=== PATIENT | male | born 1950 | race Caucasian/White ===

== ENCOUNTER 2016-10-27 22:06 | Emergency (ER) ==
[2016-10-27 22:14] VITALS: BP 163/113; TEMP 96.2; BMI 20.9
[2016-10-27] MEDS ORDERED: MORPHINE 4 MG/ML SYRINGE IM STA (23:10)
[2016-10-27] MEDS ORDERED: ZOFRAN 4 MG/2 ML IM STA (23:10)
--- NOTE | 2016-10-27 23:15 | ED.PDOC ---
General ED Provider: Dr. HERIBERTO CARNES Chief Complaint: Extremity Pain/Injury Stated Complaint: Patient complains of right elbow and proximal forearm pain that started after he fell today. Time Seen by Physician: 23:13 Mode of Arrival: Walk-In Information Source: Patient Exam Limitations: No limitations Primary Care Provider: JUNITO NEGRO Nursing and Triage Documentation Reviewed and Agree: Yes Musculoskeletal Complaint Exam - Elbow Pain Complaint/Exam Mechanism of Injury: Reports: Trauma Onset/Duration: 1 day Symptoms Are: Still present Onset of Pain: Reports: Immediate, Post accident Initial Severity: Moderate Current Severity: Severe Location: Reports: Diffuse Character: Reports: Aching, Throbbing Alleviating: Reports: None Aggravating: Reports: Movement, Twisting, Pulling Associated Signs and Symptoms: Reports: Swelling. Denies: Redness, Bruising, Fever, Weakness, Numbness, Tingling Related History: Denies: Similar episode, Occupational injury Related Surgical History: Reports: None Elbow Findings: Present: Swelling Tenderness: Present: Medial Condyle, Lateral Condyle, Radial Head Limited Range of Motion: Present: Pronation Differential Diagnoses: Sprain, Strain Review of Systems - Review Of Systems Constitutional: Reports: No symptoms Eyes: Reports: No symptoms Ears, Nose, Mouth, Throat: Reports: No symptoms Respiratory: Reports: No symptoms Cardiac: Reports: No symptoms GI: Reports: No symptoms : Reports: No symptoms Musculoskeletal: Reports: Joint pain, Joint swelling, Muscle pain Skin: Reports: No symptoms Neurological: Reports: Anxiety Endocrine: Reports: No symptoms Hematologic/Lymphatic: Reports: No symptoms All Other Systems: Reviewed and Negative Past Medical History - Past Medical History Endocrine: Reports: None Cardiovascular: Reports: Hypertension Respiratory: Reports: COPD Hematological: Reports: None Gastrointestinal: Reports: None Genitourinary: Reports: None Neuro/Psych: Reports: CVA, Anxiety, Depression Musculoskeletal: Reports: None Cancer: Reports: Other (Throat Cancer ) - Surgical History General Surgical History: Reports: Unknown - Family History Family History: Reports: Unknown - Social History Smoking Status: Current every day smoker Hx Substance Use: No Alcohol Screening: Occasionally Physical Exam - Physical Exam Appearance: Thin Ill-appearing: Mild Pain Distress: Severe Neck: Supple Respiratory: Airway patent, Breath sounds clear, Breath sounds equal, Respirations nonlabored Cardiovascular: RRR, Pulses normal, No rub, No murmur GI/: Soft, Nontender, No masses, Bowel sounds normal, No Organomegaly Musculoskeletal: Normal strength, No calf tenderness, Limited ROM, Edema Skin: Warm, Dry Psychiatric: Anxious Interpretation - Radiology Interpretation Radiology Interpretation By: ED Physician Radiology Results: Negative (bone spur.) Exam Interpreted: Other (Elbow and forarm pain ) Critical Care Note - Critical Care Note Total Time (mins): 0 Course - Course Orders, Labs, Meds: Orders Category Date Time Status Morphine Sulfate [Morphine 4 mg/ml Syringe] MEDS 10/27/16 23:10 Discontinued 4 mg IM ONCE STA Ondansetron HCl/Pf [Zofran 4 mg/2 ml] MEDS 10/27/16 23:10 Discontinued 4 mg IM ONCE STA ELBOW, RIGHT MIN 3 VIEWS Stat RADS 10/27/16 23:10 Taken FOREARM, RIGHT 2 VIEWS Stat RADS 10/27/16 23:10 Taken Medications Discontinued Medications Generic Name Dose Route Start Last Admin Trade Name Freq PRN Reason Stop Dose Admin Morphine Sulfate 4 mg 10/27/16 23:10 10/27/16 23:42 Morphine 4 Mg/Ml Syringe IM 10/27/16 23:11 4 mg ONCE STA Administration Ondansetron HCl 4 mg 10/27/16 23:10 10/27/16 23:41 Zofran 4 Mg/2 Ml IM 10/27/16 23:11 4 mg ONCE STA Administration Vital Signs: Temp Pulse Resp BP Pulse Ox 10/27/16 22:07 96.2 F L 69 16 163/113 H 98 Departure - Departure Time of Disposition: 23:48 Disposition: HOME SELF-CARE Discharge Problem: Elbow injury Qualifiers: Encounter type: initial encounter Laterality: right Qualifier Code: (S59.901A) Unspecified injury of right elbow, initial encounter Instructions: Elbow Sprain (ED) Condition: Fair Pt referred to PMD for follow-up: Yes Additional Instructions: Rest forearm Follow up wth PCP in 3 days Take medications as prescribed. Prescriptions: Hydrocodone/Acetaminophen [[place] 5-325 Tablet] 1 tab PO Q6HR PRN #12 tablet PRN Reason: PAIN Meloxicam [Mobic] 7.5 mg PO DAILYWM #14 tablet Allergies/Adverse Reactions: Allergies No Known Allergies Allergy (Unverified 10/27/16 22:10) Home Medications: Ambulatory Orders Alprazolam [Xanax] 0.25 mg PO BEDTIME 01/17/14 Aspirin [Aspirin EC] 325 mg PO DAILYWM 01/17/14 Clopidogrel Bisulfate [Plavix] 75 mg PO DAILY 01/17/14 Lisinopril [Zestril] 20 mg PO DAILY 01/17/14 Hydrocodone/Acetaminophen [[place] 5-325 Tablet] 1 tab PO Q6HR PRN #12 tablet 11/10 Levothyroxine Sodium [Synthroid] 75 mcg PO QDAC 10/27/16 Meloxicam [Mobic] 7.5 mg PO DAILYWM #14 tablet 10/27/16 Pantoprazole Sodium [Protonix] 20 mg PO DAILY 10/27/16 Disposition Discussed With: Patient, Family
--- NOTE | 2016-10-27 23:52 | DI ---
Exam: The right elbow three views History: Fall with elbow pain Findings / impression: No acute bony or articular abnormalities are seen. There is spurring on the olecranon. Marginal osteophytosis of the trochlea.
--- NOTE | 2016-10-27 23:53 | DI ---
Exam: Rightforearm two views HISTORY: Injury and pain Findings / impression: No bony abnormality is seen. No significant surrounding soft tissue abnorma lity. Negative exam.
== END 2016-10-28 00:16 | disposition home or self-care (01) ==
LOC: ED 22:06
DX: S59.901A Unspecified injury of right elbow, initial encounter (principal); M25.521 Pain in right elbow; M79.631 Pain in right forearm; W19.XXXA Unspecified fall, initial encounter; F17.210 Nicotine dependence, cigarettes, uncomplicated
CPT/HCPCS: 96372; 99283

== ENCOUNTER 2016-12-11 11:19 | Emergency (ER) ==
[2016-12-11 11:27] VITALS: BP 108/88; TEMP 98.8; BMI 21.3
[2016-12-11] MEDS ORDERED: SODIUM CHLORIDE 1,000 ML IV STA (11:40)
[2016-12-11 11:49] LABS: BASOPHILS # (AUTO) 0.1 K/uL (0-0.2); BASOPHILS % (AUTO) 0.7 % (0.0-3.0); EOSINOPHILS # (AUTO) 0.3 K/ul (0.0-0.7); EOSINOPHILS % (AUTO) 3.7 % (0.0-7.0); HEMATOCRIT 45.5 % (42.0-52.0); HEMOGLOBIN 15.3 g/dl (14.0-18.0); IMMATURE GRANULOCYTE % (AUTO) 0.4 % (0.0-5.0); LYMPHOCYTES # (AUTO) 1.2 K/uL (0.60-3.4); LYMPHOCYTES % (AUTO) 16.3 (10.0-50.0); MEAN CORPUSCULAR HGB CONC 33.6 (31.8-35.4); MEAN CORPUSCULAR VOLUME 92.3 fl (80.0-94.0); MONOCYTES # (AUTO) 0.6 K/uL (0.4-2.0); MONOCYTES % (AUTO) 8.2 (0-10); NEUTROPHILS # (AUTO) 5.2 K/ul (2.0-6.9); NEUTROPHILS % (AUTO) 70.7; PLATELET COUNT 334 10^3/uL (140-440); RED BLOOD COUNT 4.93 10^6/ul (4.70-6.10)
--- NOTE | 2016-12-11 12:05 | ED.PDOC ---
General ED Provider: Dr. KULDEEP RIOS JR Chief Complaint: Non-specific Complaint Stated Complaint: Woke at 0945 with visual difficulties. States he could see where he was going, but everything was blurry. Family states was unsteady.. Vision cleared approc 30-40 min ago.[ End ]98.8 143 20 96% 108/88 Time Seen by Physician: 12:05 Mode of Arrival: Wheelchair Information Source: Patient Exam Limitations: No limitations Primary Care Provider: JUNITO NEGRO Nursing and Triage Documentation Reviewed and Agree: No Review of Systems - Review Of Systems Constitutional: Reports: Malaise Eyes: Reports: No symptoms Ears, Nose, Mouth, Throat: Reports: No symptoms Respiratory: Reports: No symptoms Cardiac: Reports: Lightheadedness GI: Reports: No symptoms : Reports: No symptoms Musculoskeletal: Reports: No symptoms Skin: Reports: No symptoms Neurological: Reports: No symptoms Endocrine: Reports: No symptoms Hematologic/Lymphatic: Reports: No symptoms All Other Systems: Other Past Medical History - Past Medical History Endocrine: Reports: None Cardiovascular: Reports: Hypertension Respiratory: Reports: COPD Hematological: Reports: None Gastrointestinal: Reports: None Genitourinary: Reports: None Neuro/Psych: Reports: TIA, CVA, Anxiety, Depression Musculoskeletal: Reports: None Cancer: Reports: Other (Throat Cancer ) - Surgical History General Surgical History: Reports: Unknown - Family History Family History: Reports: Unknown - Social History Smoking Status: Current every day smoker, Heavy tobacco smoker Hx Substance Use: No Alcohol Screening: Occasionally Physical Exam - Physical Exam Appearance: Well-appearing Pain Distress: Mild Eyes: CASSANDRA, EOMI, Conjunctiva clear ENT: Ears normal, Nose normal, Oropharynx normal Neck: Supple Respiratory: Airway patent, Breath sounds clear, Breath sounds equal, Respirations nonlabored Cardiovascular: RRR, Pulses normal, No rub, No murmur GI/: Soft, Nontender, No masses, Bowel sounds normal, No Organomegaly Musculoskeletal: Normal strength, ROM intact, No edema, No calf tenderness Skin: Warm, Dry, Normal color Neurological: Sensation intact, Motor intact, Reflexes intact, Cranial nerves intact, Alert, Oriented Psychiatric: Affect appropriate, Mood appropriate Interpretation - EKG Interpretation Time of EKG #1: 11:45 Rate: Tachy Rhythm: Other (AFIB RVR RBBB) Physician Notification - Case Discussed Physician Notified: SRUTHI Time of Notification: 14:14 (AFIB CARDIZEM) Critical Care Note - Critical Care Note Total Time (mins): 10 Course - Course Hematology/Chemistry: 12/11/16 11:40 12/11/16 11:40 Orders, Labs, Meds: Lab Review 12/11/16 11:40 WBC 7.30 RBC 4.93 Hgb 15.3 Hct 45.5 MCV 92.3 MCH 31.0 MCHC 33.6 RDW Coeff of Dago 13.3 Plt Count 334 Immature Gran % (Auto) 0.4 Neut % (Auto) 70.7 Lymph % (Auto) 16.3 Branch % (Auto) 8.2 Eos % (Auto) 3.7 Baso % (Auto) 0.7 Immature Gran # (Auto) 0.0 Neut # 5.2 Lymph # 1.2 Branch # 0.6 Eos # 0.3 Baso # 0.1 Sodium 139 Potassium 4.6 Chloride 101 Carbon Dioxide 28 Anion Gap 14.6 BUN 18 Creatinine 1.04 Estimated GFR (MDRD) 72.00 BUN/Creatinine Ratio 17.30 Glucose 139 H Calcium 9.9 Total Bilirubin 0.44 AST 19 ALT 15 Alkaline Phosphatase 71 Total Protein 7.5 Albumin 4.0 Globulin 3.5 Albumin/Globulin Ratio 1.14 Orders Category Date Time Status EKG-(ED ONLY) Stat CARDIO 12/11/16 11:40 Completed EKG-(ED ONLY) Stat CARDIO 12/11/16 13:34 Completed CBC W/ AUTO DIFF Stat LAB 12/11/16 11:40 Completed COMPREHENSIVE METABOLIC PANEL Stat LAB 12/11/16 11:40 Completed Sodium Chloride 0.9% [Sodium Chloride] 1,000 ml MEDS 12/11/16 11:40 Discontinued IV BOLUS CHEST, 1V AP ONLY Stat RADS 12/11/16 11:[address] HEAD W/O CONTRAST Stat RADS 12/11/16 11:41 Completed Medications Discontinued Medications Generic Name Dose Route Start Last Admin Trade Name Freq PRN Reason Stop Dose Admin Sodium Chloride 1,000 mls @ 1,000 mls/hr 12/11/16 11:40 12/11/16 11:53 Sodium Chloride IV 12/11/16 12:39 1,000 mls/hr BOLUS STA Administration Vital Signs: Temp Pulse Resp BP Pulse Ox 12/11/16 11:21 98.8 F 143 H 20 108/88 96 Departure - Departure Time of Disposition: 14:11 Disposition: HOME SELF-CARE Discharge Problem: Atrial fib/flutter, transient Instructions: Atrial Fibrillation (ED) Condition: Good Pt referred to PMD for follow-up: Yes Additional Instructions: take cardizem daily follow up with PMD within two weeks call today for appointment Prescriptions: Diltiazem HCl [Cardizem Cd] 120 mg PO DAILY #30 cap.er.24h Allergies/Adverse Reactions: Allergies No Known Allergies Allergy (Verified 12/11/16 11:28) Home Medications: Ambulatory Orders Alprazolam [Xanax] 0.25 mg PO BEDTIME 01/17/14 Aspirin [Aspirin EC] 325 mg PO DAILYWM 01/17/14 Clopidogrel Bisulfate [Plavix] 75 mg PO DAILY 01/17/14 Lisinopril [Zestril] 20 mg PO DAILY 01/17/14 Hydrocodone/Acetaminophen [[place] 5-325 Tablet] 1 tab PO Q6HR PRN #12 tablet 11/10 Levothyroxine Sodium [Synthroid] 75 mcg PO QDAC 10/27/16 Pantoprazole Sodium [Protonix] 20 mg PO DAILY 10/27/16 Diltiazem HCl [Cardizem Cd] 120 mg PO DAILY #30 cap.er.24h 12/11/16 Meloxicam [Mobic] 7.5 mg PO DAILYWM PRN 12/11/16 Paroxetine HCl [Paxil] 20 mg PO DAILY 12/11/16
[2016-12-11 12:09] LABS: ALBUMIN/GLOBULIN RATIO 1.14; ANION GAP 14.6; BILIRUBIN,TOTAL 0.44 mg/dL (0.00-1.20); BUN/CREATININE RATIO 17.3; CALCIUM 9.9 mg/dL (8.2-10.2); CREATININE 1.04 mg/dL (0.60-1.10); POTASSIUM 4.6 mmol/L (3.5-5.1); TOTAL PROTEIN 7.5 g/dL (5.8-8.1)
--- NOTE | 2016-12-11 13:33 | CT ---
EXAM: CT head without contrast. HISTORY: Visualized. Previous transient ischemic attack. COMPARISON: None available. TECHNIQUE: Multiple axial images of the brain were obtained from the skull base through the vertex without intravenous contrast. FINDINGS: There is no intracranial hemorrhage or extraaxial collection. The wetzel-white differentia tion is maintained without evidence for acute large vascular territory infarction. Question old lef t cerebellar infarction on axial image 7. The cortical sulci and basal cisterns are well visualized . There is no hydrocephalus, mass effect, or midline shift. Moderate mucosal thickening in the eth moid sinuses noted. Small polyp or retention cyst noted in the left sphenoid sinus. Otherwise, the paranasal sinuses and mastoid air cells are clear. The calvarium is intact. IMPRESSION: No acute intracranial abnormality.
--- NOTE | 2016-12-11 13:33 | DI ---
EXAM: Single x-ray of the chest. Comparison: 10/12/2015. Reason for exam: No pneumothorax, pleural effusion, or focal consolidation. The cardiac silhouette is not enlarged. The imaged osseous structures are unremarkable without acute fracture. Degenerati ve changes are seen in the thoracic spine and aorta. Impression: No acute cardiopulmonary process.
== END 2016-12-11 14:37 | disposition home or self-care (01) ==
LOC: ED 11:19
DX: I48.91 Unspecified atrial fibrillation (principal); R42 Dizziness and giddiness; I10 Essential (primary) hypertension; Z79.899 Other long term (current) drug therapy; Z86.73 Personal history of transient ischemic attack (TIA), and cerebral infarction without residual deficits; F17.210 Nicotine dependence, cigarettes, uncomplicated
CPT/HCPCS: 36415; 80053; 85025; 93005; 93010; 96360; 99283

== ENCOUNTER 2017-10-30 08:02 | Outpatient (CLI) ==
--- NOTE | 2017-10-30 09:55 | CT ---
EXAM: CT chest with contrast HISTORY: Pulmonary nodule with history of cancer COMPARISON: Chest x-ray 12/11/2016 multiple prior chest x-rays with CT chest 01/16/2013. TECHNIQUE: Serial axial images of the chest were obtained after 75 ml of Omnipaque IV contrast was a dministered. These were obtained from the lung apices to the upper abdomen. FINDINGS: The thyroid is normal. Visualized vessels demonstrate scattered atherosclerotic disease. There is no dissection, aneurysm or stenosis. The heart is normal in size without pericardial effus ion. There is mild low attenuation in the subcarinal space unchanged from exam 2013. There is no di screte mediastinal lymphadenopathy. There is minimal debris in the right lower lobe bronchus. There is no pneumothorax or pleural effusion. There is a lobular pulmonary nodule in the anterior le ft upper lobe measuring 1.7 x 1.5 cm which is new when compared to 2013. There is a 0.3 cm ground-gla ss nodule in the left upper lobe on image 30. There is a 0.3 cm ground-glass nodule in the left uppe r lobe on image 36. There is mild bibasilar atelectasis. There is a 0.2 cm perifissural nodule on i mage 37 in the left lower lobe. There is a 0.3 cm ground-glass nodule in the central right upper lob e on image 28. The central airways are patent with layering debris in the right main and right lower lobe bronchus. Soft tissues in the upper abdomen demonstrate low attenuation lesion in the central right hepatic lo be measuring 0.8 cm in diameter which is unchanged. The remaining soft tissues are unremarkable. Os seous structures demonstrate degenerative disease. IMPRESSION: 1. Large lobular pulmonary nodule in the left anterior upper lobe measuring 1.7 x 1.5 cm. This is s uspicious for neoplasm and soft tissue sampling is recommended. 2. Scattered additional pulmonary nodules are present measuring no greater than 0.3 cm in diameter. Attention on follow-up is recommended. 3. Mild debris in the right lower lobe bronchus may represent retained secretions versus mild aspira tion. 4. Stable low attenuation lesion in the central right hepatic lobe.
== END 2017-10-30 08:03 | disposition home or self-care (01) ==
LOC: RAD 08:02
PROVIDERS: ATTEND Family Medicine
DX: R91.1 Solitary pulmonary nodule (principal)
CPT/HCPCS: 36415; 82565

== ENCOUNTER 2018-04-07 11:30 | Emergency (ER) | payer OTHER ==
[2018-04-07 11:37] VITALS: BP 84/51; TEMP 99.2; BMI 24.3
--- NOTE | 2018-04-07 12:52 | ED.PDOC ---
General ED Provider: Dr. SCOOTER VASQUEZ Chief Complaint: Abdominal Pain Stated Complaint: abdominal pain Time Seen by Physician: 11:40 Mode of Arrival: Walk-In Information Source: Patient Exam Limitations: No limitations Primary Care Provider: JUNITO NEGRO Nursing and Triage Documentation Reviewed and Agree: Yes Does patient meet sepsis criteria?: No If yes, has appropriate treatment been initiated?: No System Inflammatory Response Syndrome: Not Applicable Sepsis Protocol: For patient's 13 years and over: Temp is 96.8 and below OR 101 and greater Pulse >90 BPM Resp >20/minute Acutely Altered Mental Status Are patient's symptoms suggestive of a new infection, such as: -Pneumonia -Skin, Soft Tissue -Endocarditis -UTI -Bone, Joint Infection -Implantable Device -Acute Abdominal Infection -Wound Infection -Meningitis -Blood Stream Catheter Infection -Unknown GI Complaint Exam - Abdominal Pain Complaint/Exam Onset: Gradual Duration: 2 days Symptoms Are: Still present Timing: Intermittent Initial Severity: Mild Current Severity: Mild Location of Pain: RLQ, LLQ Radiates To: Denies: Chest, Back, Flank, LLQ, RLQ, Inguinal Character: Reports: Dull Aggravating: Reports: None Alleviating: Reports: None Associated Signs and Symptoms: Denies: Diaphoresis, Fever, Cough, Chest pain, Dizziness, Back pain, Constipation, Blood in stool, Dysuria, Urinary frequency, Decreased urine output, Decreased appetite, Discharge, Nausea, Vomiting, Diarrhea, Decreased activity AAA Risk Factors: Reports: None Cardiac Risk Factors: Reports: Hypertension, Elevated lipids Testicular Torsion Risk Factors: Reports: None Surgical Obstruction Risk Factors: Reports: None Related Surgical History: Reports: None Abdominal Findings: Present: None Differential Diagnoses: Appendicitis, Bowel Obstruction, Diverticulitis Review of Systems - Review Of Systems Constitutional: Reports: No symptoms Eyes: Reports: No symptoms Ears, Nose, Mouth, Throat: Reports: No symptoms Respiratory: Reports: No symptoms Cardiac: Reports: No symptoms GI: Reports: Abdominal pain : Reports: No symptoms Musculoskeletal: Reports: No symptoms Skin: Reports: No symptoms Neurological: Reports: No symptoms Endocrine: Reports: No symptoms Hematologic/Lymphatic: Reports: No symptoms All Other Systems: Reviewed and Negative Past Medical History - Past Medical History Previously Healthy: Yes Endocrine: Reports: None Cardiovascular: Reports: Hypertension Respiratory: Reports: COPD Hematological: Reports: None Gastrointestinal: Reports: None Genitourinary: Reports: None Neuro/Psych: Reports: TIA, CVA, Anxiety, Depression Musculoskeletal: Reports: None Cancer: Reports: Other (Throat Cancer ) - Surgical History General Surgical History: Reports: Unknown - Family History Family History: Reports: Unknown - Social History Smoking Status: Current some day smoker Hx Substance Use: No Alcohol Screening: None - Immunizations Tetanus Shot up to Date: Yes Physical Exam - Physical Exam Appearance: Well-appearing, No pain distress, Well-nourished Eyes: CASSANDRA, EOMI, Conjunctiva clear ENT: Ears normal, Nose normal, Oropharynx normal Respiratory: Airway patent, Breath sounds clear, Breath sounds equal, Respirations nonlabored Cardiovascular: RRR, Pulses normal, No rub, No murmur GI/: Soft, Nontender, No masses, Bowel sounds normal, No Organomegaly Musculoskeletal: Normal strength, ROM intact, No edema, No calf tenderness Skin: Warm, Dry, Normal color Neurological: Sensation intact, Motor intact, Reflexes intact, Cranial nerves intact, Alert, Oriented Psychiatric: Affect appropriate, Mood appropriate Physician Notification - Case Discussed Physician Notified: [email or web address] Time of Notification: 13:31 Admit To: Inpatient Critical Care Note - Critical Care Note Total Time (mins): 0 Course - Course Hematology/Chemistry: 04/07/18 12:15 04/07/18 12:15 Orders, Labs, Meds: Lab Review 04/07/18 04/07/18 04/07/18 12:15 12:15 12:25 WBC 11.46 H RBC 4.06 L Hgb 12.1 L Hct 37.1 L MCV 91.4 MCH 29.8 MCHC 32.6 RDW Coeff of Dago 13.6 Plt Count 301 Immature Gran % (Auto) 0.5 Neut % (Auto) 80.5 Lymph % (Auto) 6.2 L Upson % (Auto) 7.9 Eos % (Auto) 4.5 Baso % (Auto) 0.4 Immature Gran # (Auto) 0.1 Neut # (Auto) 9.2 H Lymph # (Auto) 0.7 Upson # (Auto) 0.9 Eos # (Auto) 0.5 Baso # (Auto) 0.1 Sodium 139 Potassium 4.1 Chloride 103 Carbon Dioxide 25 Anion Gap 15.1 BUN 13 Creatinine 0.95 Estimated GFR (MDRD) 79.00 BUN/Creatinine Ratio 13.68 Glucose 107 Lactic Acid Calcium 10.0 Total Bilirubin 0.6 AST 15 ALT 14 Alkaline Phosphatase 84 Total Protein 7.7 Albumin 3.2 L Globulin 4.5 Albumin/Globulin Ratio 0.71 Amylase 26 Lipase 5 L Urine Color Brooke Urine Clarity Clear Urine pH 7.5 Ur Specific Raymond 1.015 Urine Protein 2+ Urine Glucose (UA) Negative Urine Ketones Trace Urine Blood Negative Urine Nitrite Negative Urine Bilirubin 1+ Urine Urobilinogen 2.0 Ur Leukocyte Esterase Negative Urine Microscopic WBC 2-5 Ur Squamous Epith Cells Not present Urine Bacteria Trace 04/07/18 13:00 WBC RBC Hgb Hct MCV MCH MCHC RDW Coeff of Dago Plt Count Immature Gran % (Auto) Neut % (Auto) Lymph % (Auto) Upson % (Auto) Eos % (Auto) Baso % (Auto) Immature Gran # (Auto) Neut # (Auto) Lymph # (Auto) Upson # (Auto) Eos # (Auto) Baso # (Auto) Sodium Potassium Chloride Carbon Dioxide Anion Gap BUN Creatinine Estimated GFR (MDRD) BUN/Creatinine Ratio Glucose Lactic Acid 7.9 Calcium Total Bilirubin AST ALT Alkaline Phosphatase Total Protein Albumin Globulin Albumin/Globulin Ratio Amylase Lipase Urine Color Urine Clarity Urine pH Ur Specific Raymond Urine Protein Urine Glucose (UA) Urine Ketones Urine Blood Urine Nitrite Urine Bilirubin Urine Urobilinogen Ur Leukocyte Esterase Urine Microscopic WBC Ur Squamous Epith Cells Urine Bacteria Orders Category Date Time Status AMYLASE Stat LAB 04/07/18 12:15 Completed BLOOD CULTURE Stat LAB 04/07/18 13:18 Ordered CBC W/ AUTO DIFF Stat LAB 04/07/18 12:15 Completed COMPREHENSIVE METABOLIC PANEL Stat LAB 04/07/18 12:15 Completed LACTIC ACID Stat LAB 04/07/18 13:00 Completed LIPASE Stat LAB 04/07/18 12:15 Completed PROCALCITONIN Stat LAB 04/07/18 Ordered URINALYSIS C & S IF INDICATED Stat LAB 04/07/18 12:[address] ABDOMEN/PELVIS WO CONTRAST Stat RADS 04/07/18 12:01 Completed Vital Signs: Temp Pulse Resp BP Pulse Ox 04/07/18 11:33 99.2 F 83 16 84/51 L 93 L Departure - Departure Time of Disposition: 13:31 Disposition: ADMITTED INPATIENT Discharge Problem: Abdominal pain, Diverticulitis Instructions: Abdominal Pain (ED) Condition: Good Pt referred to PMD for follow-up: Yes IPMP verified?: No Additional Instructions: Please call your Family Physician as soon as possible to schedule a follow-up appointment. Allergies/Adverse Reactions: Allergies No Known Allergies Allergy (Verified 12/11/16 11:28) Home Medications: Ambulatory Orders Alprazolam [Xanax] 0.25 mg PO BEDTIME 01/17/14 Aspirin [Aspirin EC] 325 mg PO DAILYWM 01/17/14 Clopidogrel Bisulfate [Plavix] 75 mg PO DAILY 01/17/14 Lisinopril [Zestril] 20 mg PO DAILY 01/17/14 Hydrocodone/Acetaminophen [[place] 5-325 Tablet] 1 tab PO Q6HR PRN #12 tablet 11/10 Levothyroxine Sodium [Synthroid] 75 mcg PO QDAC 10/27/16 Pantoprazole Sodium [Protonix] 20 mg PO DAILY 10/27/16 Diltiazem HCl [Cardizem Cd] 120 mg PO DAILY #30 cap.er.24h 12/11/16 Meloxicam [Mobic] 7.5 mg PO DAILYWM PRN 12/11/16 Paroxetine HCl [Paxil] 20 mg PO DAILY 12/11/16 Disposition Discussed With: Patient, Family
--- NOTE | 2018-04-07 13:02 | CT ---
EXAM: CT of the abdomen pelvis without contrast History: Abdominal pain, low grade fever, pain with urination. Technique: Multiplanar CT images through the abdomen pelvis were obtained without the administration of IV contrast Findings: Subsegmental atelectasis is seen within the lower lungs. No acute osseous abnormalities. All no discrete gallstones identified by CT. No focal liver or splenic lesions. Atherosclerotic vas cular calcifications. No peripancreatic inflammation. Adrenal glands are unremarkable. 1 mm right renal calculus. No left renal calculi. No hydronephrosis. No ureteral calculi. Fat-containing blake ateral inguinal hernias. Enlarged prostate abutting the base. The bladder. There is a soft tissue density seen at the bladder base. Colonic diverticulosis. There is short segment wall thickening of the sigmoid colon with adjacent inflammation and tethering. Evaluation for abscess is limited due t o the lack of contrast administration but no obvious drainable fluid collections are identified. No free air. Impression: 1. Short segment wall thickening of the sigmoid colon with adjacent inflammation. Differential diag nosis includes diverticulitis or malignancy. Further evaluation is recommended. 2. Soft tissue density at the base of bladder probably related to volume averaging from the enlarged prostate. Bladder wall mass is not excluded. Further evaluation can be obtained with CT urogram or direct visualization. 3. Punctate nonobstructing right renal calculus.
[2018-04-07] MEDS ORDERED: ROCEPHIN IM STA (13:39)
[2018-04-07] MEDS ORDERED: FLAGYL PO STA (13:39)
[2018-04-07] MEDS ORDERED: LIDOCAINE HCL 1% SDV IM STA (13:39)
== END 2018-04-07 13:59 | disposition left against medical advice (07) ==
LOC: ED 11:30
DX: K57.92 Diverticulitis of intestine, part unspecified, without perforation or abscess without bleeding (principal); R10.9 Unspecified abdominal pain; I10 Essential (primary) hypertension; E78.5 Hyperlipidemia, unspecified; F17.210 Nicotine dependence, cigarettes, uncomplicated; Z79.899 Other long term (current) drug therapy; Z86.73 Personal history of transient ischemic attack (TIA), and cerebral infarction without residual deficits
CPT/HCPCS: 36415; 80053; 81001; 82150; 83605; 83690; 84145; 85025; 87040; 96372; 99283

== ENCOUNTER 2018-07-16 12:12 | Outpatient (CLI) | payer OTHER ==
--- NOTE | 2018-07-16 15:08 | DI ---
EXAM: Three views of the lumbar spine. History: Lower back pain. Findings: Atherosclerotic vascular calcifications. No acute fracture or subluxation of the lumbar s pine. Mild to moderate multilevel disc space narrowing with endplate sclerosis and several prominent anterior osteophytes. Impression: 1. No acute osseous abnormality of the lumbar spine. 2. Mild to moderate degenerative disc disease. 3. Atherosclerotic vascular disease
--- NOTE | 2018-07-16 15:10 | DI ---
EXAM: Single view of the pelvis. History: Pelvic pain. Findings: No acute fracture or dislocation. Mild to moderate narrowing of bilateral hip joints with marginal sclerosis and small osteophytes. Impression: 1. No acute osseous abnormality. 2. 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
== END 2018-07-16 12:13 | disposition home or self-care (01) ==
LOC: RAD 12:12
PROVIDERS: ATTEND Family Medicine
DX: M54.5 Low back pain (principal); R10.2 Pelvic and perineal pain

== ENCOUNTER 2018-12-18 12:22 | Emergency (ER) | payer OTHER ==
[2018-12-18 12:27] VITALS: BP 133/91; TEMP 99.8; BMI 23.5
--- NOTE | 2018-12-18 14:22 | CT ---
EXAM: CT THORAX HISTORY: Cough, history of lung cancer. TECHNIQUE: CT thorax without intravenous contrast. Multiplanar images presented. COMPARISON: 10/30/2017 FINDINGS: Normal heart size. There is moderate atherosclerotic disease. Limited evaluation of the mediastinum and hilar structures without the administration of intravenous contrast agent. A few scattered medi astinal lymph nodes appear grossly stable. The the aforementioned left upper lobe nodule is less noticeable. There has been development of nume len nodular opacities throughout, especially the lower lobes with some measuring up to about 15 mm. Trace bilateral pleural effusions. Mild basilar consolidations are present. There is no pneumothor ax. The bones reveal bridging osteophytic spurs of the bones. IMPRESSION: 1. Aforementioned left upper lobe nodule is currently poorly seen/smaller. 2. Interval development of numerous nodular densities in the lungs especially lower lobes which may be infectious, less likely neoplastic although not excluded. 3. Trace pleural effusions. 4. Atherosclerosis.
[2018-12-18] MEDS ORDERED: DECADRON 4 MG/ML SDV IM STA (14:31)
--- NOTE | 2018-12-18 14:36 | ED.PDOC ---
General ED Provider: Dr. SCOOTER VASQUEZ Chief Complaint: Respiratory Complaint Stated Complaint: cough, congestion history of lung cancer still smokes some not short of breath denied chest pain Time Seen by Physician: 12:28 (nursing present ) Mode of Arrival: Walk-In Information Source: Patient Exam Limitations: No limitations Primary Care Provider: JUNITO NEGRO Nursing and Triage Documentation Reviewed and Agree: Yes Does patient meet sepsis criteria?: No System Inflammatory Response Syndrome: Not Applicable Sepsis Protocol: For patient's 13 years and over: Temp is 96.8 and below OR 101 and greater Pulse >90 BPM Resp >20/minute Acutely Altered Mental Status Are patient's symptoms suggestive of a new infection, such as: -Pneumonia -Skin, Soft Tissue -Endocarditis -UTI -Bone, Joint Infection -Implantable Device -Acute Abdominal Infection -Wound Infection -Meningitis -Blood Stream Catheter Infection -Unknown Respiratory Complaint Exam - Respiratory Complaint/Exam Onset/Duration: 2 days Symptoms Are: Resolved Timing: Intermittent Initial Severity: Mild Current Severity: Mild Location: Nose, Throat, Chest Character: Reports: Non-productive cough, Dry cough Aggravating: Reports: None Alleviating: Reports: Upright position, Spontaneous resolution Associated Signs and Symptoms: Reports: URI, Nasal congestion. Denies: Rapid breathing, Dyspnea, Fever, Chills, Chest pain, Pleuritic chest pain, Wheezing, Hemoptysis, Dizziness, Calf pain, Calf swelling, Edema, Hoarseness, Sinus discomfort, Vomiting, Sore throat, Weight loss, Decreased oral intake, Increased thirst, Increased appetite, Increased urination Related History: Reports: Similar episode History of Healthcare-Acquired Pneumonia: No Related Surgical History: Reports: None Pulmonary Embolism Risk Factors: Smoking Pseudomonas Risk Factors: Reports: Chronic Lung Disease Tuberculosis Risk Factors: Reports: None Status Asthmaticus Risk Factors: Reports: None Home Oxygen Use: No Recent Stress Test: No Recent Echo/LV Function: No Current Antibiotic Use: No Current Asthma Medication Use: No Respiratory Distress: None Inadequate Respiratory Effort: No Dysphagia Present: No Stridor Present: No JVD Present: No Accessory Muscle Use: No Retractions: Not Present Diminished Breath Sounds: No Sinus Tenderness: None Grunting Respirations: No Kussmaul Respirations: No Differential Diagnoses: CHF, COPD Exacerbation, Pneumonia, Lower Resp. Infection Review of Systems - Review Of Systems Constitutional: Reports: Loss of appetite Eyes: Reports: No symptoms Ears, Nose, Mouth, Throat: Reports: No symptoms Respiratory: Reports: Cough Cardiac: Reports: No symptoms GI: Reports: No symptoms : Reports: No symptoms Musculoskeletal: Reports: No symptoms Skin: Reports: No symptoms Neurological: Reports: No symptoms Endocrine: Reports: No symptoms Hematologic/Lymphatic: Reports: No symptoms All Other Systems: Reviewed and Negative Past Medical History - Past Medical History Previously Healthy: Yes Endocrine: Reports: None Cardiovascular: Reports: Hypertension Respiratory: Reports: COPD Hematological: Reports: None Gastrointestinal: Reports: None Genitourinary: Reports: None Neuro/Psych: Reports: TIA, CVA, Anxiety, Depression Musculoskeletal: Reports: None Cancer: Reports: Other (Throat Cancer ) - Surgical History General Surgical History: Reports: Unknown - Family History Family History: Reports: Unknown - Social History Smoking Status: Current some day smoker, Light tobacco smoker Hx Substance Use: No Alcohol Screening: None Physical Exam - Physical Exam Appearance: Well-appearing, No pain distress, Well-nourished Eyes: CASSANDRA, EOMI, Conjunctiva clear ENT: Ears normal, Nose normal, Oropharynx normal Respiratory: Rhonchi (bilateral bases , no resp distress) Cardiovascular: RRR, Pulses normal, No rub, No murmur GI/: Soft, Nontender, No masses, Bowel sounds normal, No Organomegaly Musculoskeletal: Normal strength, ROM intact, No edema, No calf tenderness Skin: Warm, Dry, Normal color Neurological: Sensation intact, Motor intact, Reflexes intact, Cranial nerves intact, Alert, Oriented Psychiatric: Affect appropriate, Mood appropriate Re-Evaluation - Re-Evaluation Time of Re-Evaluation: 14:37 Status: Improved Vital Signs Stable: Yes Pain Level: 0 Appearance: NAD Lungs: Other (ronchi) Skin: Warm and Dry Neuro: Alert and Oriented X3 CV: RRR Critical Care Note - Critical Care Note Total Time (mins): 0 Course - Course Hematology/Chemistry: 12/18/18 13:05 12/18/18 13:05 Orders, Labs, Meds: Lab Review 12/18/18 12/18/18 12/18/18 12:53 13:05 13:05 WBC 14.46 H RBC 4.17 L Hgb 12.8 L Hct 39.0 L MCV 93.5 MCH 30.7 MCHC 32.8 RDW Coeff of Dago 13.5 Plt Count 246 Immature Gran % (Auto) 0.9 Neut % (Auto) 82.3 Lymph % (Auto) 7.5 L Pine % (Auto) 6.2 Eos % (Auto) 2.7 Baso % (Auto) 0.4 Immature Gran # (Auto) 0.1 Neut # (Auto) 11.9 H Lymph # (Auto) 1.1 Pine # (Auto) 0.9 Eos # (Auto) 0.4 Baso # (Auto) 0.1 Puncture Site Rb O2 Saturation 92.0 L ABG pH 7.435 ABG pCO2 36.1 ABG pO2 61.0 L ABG HCO3 24.3 ABG Total CO2 25 ABG Base Excess 0 FiO2 % 21.0 Sodium 137.5 Potassium 3.97 Chloride 101.2 Carbon Dioxide 27.8 Anion Gap 12.47 BUN 11.9 Creatinine 0.90 Estimated GFR (MDRD) 84.00 BUN/Creatinine Ratio 13.22 Glucose 89.8 Calcium 9.16 Total Bilirubin 0.74 AST 29.0 ALT 16.1 Alkaline Phosphatase 80.9 Total Protein 6.89 Albumin 4.24 Globulin 2.65 Albumin/Globulin Ratio 1.60 Orders Category Date Time Status ABG DRAW REQUEST Stat CARDIO 12/18/18 12:53 Completed ABG Stat LAB 12/18/18 12:53 Completed CBC W/ AUTO DIFF Stat LAB 12/18/18 13:05 Completed COMPREHENSIVE METABOLIC PANEL Stat LAB 12/18/18 13:05 Completed Dexamethasone 4 mg/ml Inj [Decadron 4 mg/ml Sdv] MEDS 12/18/18 14:31 Stat 8 mg IM ONCE STA CT CHEST W/O CONTRAST Stat RADS 12/18/18 12:52 Completed Medications Discontinued Medications Generic Name Dose Route Start Last Admin Trade Name Freq PRN Reason Stop Dose Admin Dexamethasone Sodium Phosphate 8 mg 12/18/18 14:31 Decadron 4 Mg/Ml Sdv IM 12/18/18 14:32 ONCE STA Vital Signs: Temp Pulse Resp BP Pulse Ox 12/18/18 12:22 99.8 F H 88 22 133/91 H 88 L Departure - Departure Time of Disposition: 15:00 Disposition: HOME SELF-CARE Discharge Problem: Bronchitis Instructions: Acute Bronchitis (ED), Bronchospasm (ED), Wheezing (ED), How Your Lungs Work (ED) Condition: Good Pt referred to PMD for follow-up: Yes IPMP verified?: No Additional Instructions: Please call your Family Physician as soon as possible to schedule a follow-up appointment. AVOID SMOKING Prescriptions: Azithromycin [Zithromax] 500 mg PO DIRECTED #6 tablet Prednisone 20 mg PO DAILYWM 4 Days #4 tablet Allergies/Adverse Reactions: Allergies No Known Allergies Allergy (Verified 12/18/18 12:29) Home Medications: Ambulatory Orders Alprazolam [Xanax] 0.25 mg PO BEDTIME 01/17/14 Aspirin [Aspirin EC] 325 mg PO DAILYWM 01/17/14 Clopidogrel Bisulfate [Plavix] 75 mg PO DAILY 01/17/14 Lisinopril [Zestril] 20 mg PO DAILY 01/17/14 Levothyroxine Sodium [Synthroid] 75 mcg PO QDAC 10/27/16 Pantoprazole Sodium [Protonix] 20 mg PO DAILY 10/27/16 Diltiazem HCl [Cardizem Cd] 120 mg PO DAILY #30 cap.er.24h 12/11/16 Meloxicam [Mobic] 7.5 mg PO DAILYWM PRN 12/11/16 Paroxetine HCl [Paxil] 20 mg PO DAILY 12/11/16 Azithromycin [Zithromax] 500 mg PO DIRECTED #6 tablet 12/18/18 Prednisone 20 mg PO DAILYWM 4 Days #4 tablet 12/18/18 Disposition Discussed With: Patient
== END 2018-12-18 14:50 | disposition home or self-care (01) ==
LOC: ED 12:22
DX: J40 Bronchitis, not specified as acute or chronic (principal); I10 Essential (primary) hypertension; J44.9 Chronic obstructive pulmonary disease, unspecified; F17.210 Nicotine dependence, cigarettes, uncomplicated; Z85.118 Personal history of other malignant neoplasm of bronchus and lung; Z79.899 Other long term (current) drug therapy; Z86.73 Personal history of transient ischemic attack (TIA), and cerebral infarction without residual deficits
CPT/HCPCS: 36415; 80053; 82803; 85025; 96372; 99283

== ENCOUNTER 2018-12-22 19:32 | Outpatient (CLI) | END 2018-12-22 20:01 | disposition short-term general hospital (02) | LOC: AMBL 19:32 | PROVIDERS: ATTEND Family Medicine | DX: R06.02 Shortness of breath (principal); J44.9 Chronic obstructive pulmonary disease, unspecified; C34.90 Malignant neoplasm of unspecified part of unspecified bronchus or lung; R05 Cough; R00.0 Tachycardia, unspecified; R06.2 Wheezing; R53.1 Weakness; Z85.89 Personal history of malignant neoplasm of other organs and systems ==